=== PATIENT | male | born 1975 | race Caucasian/White ===

== ENCOUNTER 2016-09-01 18:58 | Emergency (ER) | payer OTHER ==
[2016-09-01] MEDS ORDERED: PREDNISONE 20 MG TABLET ONE (19:23)
== END 2016-09-01 19:35 | disposition home or self-care (01) ==
LOC: ED 18:58
DX: L23.9 Allergic contact dermatitis, unspecified cause (principal); F17.210 Nicotine dependence, cigarettes, uncomplicated
CPT/HCPCS: 99282; 99283; J7512